=== PATIENT | female | born 1945 | race African-American/Black ===

== ENCOUNTER → 2019-12-26 | Day surgery (SDC) | payer OTHER ==
--- NOTE | 2019-12-27 12:28 | PATH ---
Surgical Pathology Report Patient Name: TREVIN MCDANIEL [facility]. Rec. #: [id number] /Age/Gender: 1945 (Age: 73) / F Account: [id number] Location: [facility] Taken: 12/26/2019 Received: 12/26/2019 Reported: 12/27/2019 Physicians: Moreno Jackson M.D. Specimen(s) Received A: RIGHT BREAST WITH CALCIFICATIONS B: RIGHT BREAST WITHOUT CALCIFICATIONS Clinical History Nonpalpable lesion Mammographic findings: Microcalcification, suspicious Final Diagnosis A. BREAST, RIGHT, WITH CALCIFICATIONS, STEREOTACTIC BIOPSY: BENIGN BREAST TISSUE SHOWING FIBROCYSTIC CHANGES INCLUDING CYSTIC APOCRINE METAPLASIA AND STROMAL FIBROSIS. FEW CALCIFICATIONS ARE PRESENT IN ASSOCIATION WITH CYST CONTENTS AND BENIGN GLANDULAR PARENCHYMA. B. BREAST, RIGHT, WITHOUT CALCIFICATIONS, STEREOTACTIC BIOPSY: BENIGN BREAST TISSUE WITH RARE ASSOCIATED CALCIFICATION. Electronically Signed Pam Yuen M.D. Gross Description A. Received in formalin labeled "right breast specimen with calcifications," are 4 william-yellow, cylindrical portions of fibroadipose tissue ranging from 1.7-3.5 cm in length and averaging 0.4 cm in diameter. The specimens are submitted in toto in 2 cassettes. B. Received in formalin labeled "right breast without calcifications" is a 2.2 x 1.7 x 0.3 cm aggregate of multiple william-yellow, irregular to cylindrical portions of fibroadipose tissue. The formalin is filtered and the specimen is entirely submitted in one cassette. Time to formalin fixation: 5 minutes Total formalin fixation time: Approximately 8 hours. /12/26/2019 [facility]/12/26/2019
== END | disposition home or self-care (01) ==
LOC: FMAMMOTONE 07:13
PROVIDERS: ATTEND Surgery Surgical Oncology
PROC: 0HBT3ZX Excision of Right Breast, Percutaneous Approach, Diagnostic (ICD-10-PCS; principal; 2019-12-26)
DX: N60.11 Diffuse cystic mastopathy of right breast (principal); N60.31 Fibrosclerosis of right breast; N64.89 Other specified disorders of breast; R92.1 Mammographic calcification found on diagnostic imaging of breast
CPT/HCPCS: 19081; 76098-TC-FY; 87899; 88305-TC; A4648